=== PATIENT | female | born 1955 | race Caucasian/White ===

== ENCOUNTER 2016-07-11 04:20 | Inpatient (IN) | payer OTHER ==
--- NOTE | ~2016-07-11 | HP ---
Unit #: [id number] #: [id number] Patient: ADEOLA CEVALLOS [id number] [address] [place], [place] [address] [id number] I MR#: [id number] NAME: ADEOLA CEVALLOS ROOM: 571 Age: 60 Sex: F Admission Date: 07/11/2016 : 1955 Attending Physician: Michelle Hidalgo M.D. Primary Care Physician: Samir Tomlinson A.P.R.N. HISTORY AND PHYSICAL CHIEF COMPLAINT Bronchitis with COPD exacerbation, acute hypoxic respiratory failure. HISTORY This pleasant 60-year-old female with hypothyroidism, GERD, depression, was transferred from [facility] emergency department for respiratory failure. The patient states that she was well until about five days prior to admission when she developed a deep cough productive of light green sputum with increasing shortness of breath, wheezing, fever, sweats and chills. No previous history of lung disease, although she smokes between 1/2 to 3/4 packs per day of tobacco. When she presented to [facility] ER, her O2 sats were about 87%. She was treated with DuoNeb, steroids, IV magnesium, given a dose of Zithromax. Sent to this facility for further workup and treatment. Chest x-ray shows COPD but no active infiltrates. As an aside, the patient states that she fell and hit her head a week or so ago and has been experiencing increasing pain around the frontal region, particularly when coughing. PAST MEDICAL HISTORY 1. Hypothyroidism. 2. Irritable bowel syndrome. 3. Osteoporosis. 4. GERD. 5. History of kidney stones, status post ESWL. 6. Depression. 7. Back surgery with chronic back pain. 8. Total abdominal hysterectomy. 9. Removal of right knee ganglionic cyst. 10. Bilateral foot surgery. ALLERGIES None. HOME MEDICATIONS Trazodone 100 mg q.h.s.; Sears 10/325 q.4 hours as needed; Klonopin 1 mg daily; Cymbalta 60 mg daily; Janet D b.i.d.; Neurontin unknown dose; Synthroid 0.088 mg daily; omeprazole 40 mg daily; potassium and vitamins; Fosamax each week. FAMILY HISTORY Congestive heart failure. Unit #: [id number] #: [id number] Patient: ADEOLA CEVALLOS SOCIAL HISTORY The patient lives with her and extended family. Smokes between 1/2 to 3/4 packs per day. Has been smoking for 40 years but wants to stop smoking. Does not drink alcohol. REVIEW OF SYSTEMS Notable for headache, fall with headache, wheezing, shortness of breath, fever, sweats, chills, cough, tobacco use, thyroid disease, osteoporosis, GERD, kidney stones, depression, above mentioned surgeries. All other systems were reviewed and are otherwise negative. PHYSICAL EXAMINATION GENERAL: Pleasant 60-year-old female currently in no acute distress. VITAL SIGNS: Prior to transfer pulse 64, respirations 22, blood pressure 144/99, temperature 97.6, O2 saturation 87% on room air. HEENT: Eyes - PERRLA. Extraocular muscles are intact. Pharynx is benign. NECK: Supple without adenopathy or thyromegaly. CHEST: Reveals some rhonchi and a few crackles at the bases along with mild expiratory wheezes. CARDIAC: Normal S1 and S2 without murmur. ABDOMEN: Bowel sounds are present. Epigastric tenderness is noted, which the patient states has been present for the past year. No hepatosplenomegaly or masses. No rebound. No guarding. EXTREMITIES: Without edema. Pedal pulses are present. NEUROLOGIC: Patient is awake, alert, and oriented. Cranial nerves are intact. Equal strength throughout. DIAGNOSTIC STUDIES LABORATORY STUDIES: Hematocrit is 39.2, normal white count and platelet count. SMA 12 - potassium 3.3, normal magnesium. Troponin negative. IMAGING STUDIES: Chest x-ray shows COPD, no infiltrates. ASSESSMENT 1. Bronchitis with likely underlying COPD, which is exacerbated and associated hypoxic respiratory failure, which is acute. 2. Hypothyroidism. 3. Headache after fall with head injury. 4. Tobacco use. 5. GERD. 6. Depression. 7. Osteoporosis. 8. Chronic back pain. PLANS 1. Zithromax pending sputum cultures, steroids, mucolytics, and bronchodilators. 2. Smoking cessation counseling. 3. CT scan of the head. 4. SCDs for DVT prophylaxis. 5. Repeat labs this morning. Dictated by Michelle Hidalgo M.D. AML/ts Unit #: [id number] #: [id number] Patient: ADEOLA CEVALLOS TD: 07/11/2016 06:36 JOB #: [id number] HISTORY AND PHYSICAL Page 1 of 1 X Michelle Hidalgo MD X HISTORY AND PHYSICAL
--- NOTE | ~2016-07-11 | CT71 ---
[facility] A Service of [facility] & [facility] RADIOLOGY TEXT RESULTS PATIENT: ADEOLA CEVALLOS LOCATION: [facility] 571-01 : [birth year] UNIT #: [id number] AGE: [address]: Marilyn Strickland MD SEX: F ORDER DR: [id number] [facility] [address] [place], [place] [address] [id number] I MR#: [id number] #: [id number] NAME: ADEOLA CEVALLOS : 1955 SEX: F STUDY DATE/TIME: 07/11/2016 8:21 UNIT: [facility] ROOM: [facility] STUDY DESCRIPTION: CT Head Wo Contrast Attending Physician: Marilyn Strickland M.D. Ordering Physician: Michelle Hidalgo M.D. Primary Care Physician: Samir Tomlinson A.P.R.N. MEDICAL IMAGING REPORT This report is preliminary unless electronic signature is present EXAM Head CT without HISTORY Head injury, fell hit frontal area on side of door. frontal pain for a week. TECHNIQUE This CT exam was performed with one or more of the following radiation dose reduction techniques: automatic exposure control, adjustment of mA and/or kV according to patient size, and iterative reconstruction. FINDINGS Routine noncontrast head CT is reviewed. Mastoid air cells are clear. Visualized paranasal sinuses show minor mucosal thickening and no sinus air-fluid level. There is some vascular calcifications at the base of the brain. There is no evidence for acute intracranial hemorrhage or extraaxial fluid collection. The ventricles are normal in size and configuration and the sosa-white junction is well-maintained. No acute cortical infarct. No midline shift. Basilar cisterns patent. No intracranial mass effect. IMPRESSION Mild vascular calcifications otherwise negative noncontrast head CT. STAT * RESULT Dictated by... Rebeka Kuhn M.D. THIS IS AN ELECTRONICALLY VERIFIED REPORT [facility] A Service of [facility] & [facility] RADIOLOGY TEXT RESULTS PATIENT: ADEOLA CEVALLOS LOCATION: [facility] 571-01 : [birth year] UNIT #: [id number] AGE: [address]: Marilyn Strickland MD SEX: F ORDER DR: Rbeeka Kuhn M.D. at 07/11/2016 5:25 PM Claudia TD: 07/11/2016 09:11 JOB #: [id number] MEDICAL IMAGING REPORT Page 1 of 1 COPY
--- NOTE | ~2016-07-11 | EKG ---
PATIENT: ADEOLA CEVALLOS UNIT #: [id number] Ventricular Rate: 78 BPM Atrial Rate: 78 BPM P-R Interval: 168 ms QRS Duration: 84 ms Q-T Interval: 418 ms QTC Calculation(Bezet): 476 ms P Tony: 50 degrees Calculated R Tony: 60 degrees Calculated T Tony: 73 degrees Diagnosis Line: Normal sinus rhythm Diagnosis Line: Normal ECG Diagnosis Line: No previous ECGs available Diagnosis Line: Confirmed by PHILL REED MD ([id number]) on 07/12/2016 Diagnosis Line: 9:58:01 AM INTERPRETING MD: DEREK ELLISON
--- NOTE | ~2016-07-11 | DS ---
Unit #: [id number] #: [id number] Patient: ADEOLA CEVALLOS [id number] [address] [address] [id number] I MR#: [id number] NAME: ADEOLA CEVALLOS ROOM: 571 Age: 60 Sex: F Admission Date: 07/11/2016 : 1955 Discharge Date: Attending Physician: Marilyn Strickland M.D. Primary Care Physician: Samir Tomlinson A.P.R.N. DISCHARGE SUMMARY DISCHARGE DIAGNOSES 1. Acute hypoxic respiratory failure. 2. Chronic obstructive pulmonary disease with exacerbation with acute bronchitis. 3. Hypothyroidism. 4. Headache after fall with head injury. Computed tomography negative. 5. Smoking. 6. Gastroesophageal reflux disease. 7. Depression. 8. Osteoporosis. 9. Chronic back pain. 10. History of kidney stones. 11. Irritable bowel syndrome. 12. Mild metabolic acidosis. CONSULTATIONS None. PROCEDURES None. DIAGNOSTIC TESTING LAB DATA: WBC 4.2, hemoglobin 13.1, platelets 220. Sodium 139, potassium 3.8, creatinine 0.7. Liver enzymes normal. CARDIOVASCULAR: EKG normal. IMAGING: CT of the head without contrast shows mild vascular calcifications; otherwise, normal. ALLERGIES None. DISCHARGE MEDICATIONS 1. Neurontin 100 mg t.i.d. 2. Cymbalta 60 mg p.o. daily. 3. Trazodone 100 mg at bedtime. 4. Janet 1 tablet p.o. daily. 5. Nicotine 14 mg transdermal daily. 6. Klonopin 1 mg daily. 7. Alendronate 70 mg p.o. weekly. 8. Ibuprofen 600 q.8 p.r.n. pain. 9. Lortab 10 mg q.4 p.r.n. pain. 10. Omeprazole 40 p.o. daily. Unit #: [id number] #: [id number] Patient: ADEOLA CEVALLOS 11. Levothyroxine 88 mcg p.o. daily. 12. Zithromax 500 p.o. daily. 13. Symbicort 160 mcg 1 puff inhalation b.i.d. 14. Albuterol Mini-Neb q.6 p.r.n. shortness of breath. HOSPITALIZATION COURSE A 60 year old admitted because of shortness of breath. Acute hypoxic respiratory failure from COPD. She was on 2 liters. Currently off oxygen. COPD with exacerbation. Started on DuoNeb and IV Solu-Medrol. Currently breathing better. Continue with DuoNeb, albuterol, Symbicort at home. No prednisone needed. I gave prescription for Zithromax. Complaining of headache. CAT scan of the head is negative. She had trauma with head injury, but CAT scan did not show any bleed. DISCHARGE PLAN 1. Discharge home. 2. Follow with family physician in 1 week's time. Dictated by... Isaiah Montero/angel TD: 07/12/2016 15:57 JOB #: [id number] DISCHARGE SUMMARY Page 1 of 1 X Marilyn Strickland MD X DISCHARGE SUMMARY
[2016-07-11] MEDS ORDERED: NICOTINE PATCH1 EAC1 (04:52)
[2016-07-11 06:56] LABS: HEMATOCRIT 40.4 % (35.0-45.0); HEMOGLOBIN 13.1 gm/dL (12.0-16.0); MEAN CELL VOLUME 88.7 FL (83-96); MEAN CORPUSCULAR HEMOGLOBIN 28.9 PG (28-34); MEAN CORPUSCULAR HGB CONC 32.5 g/dL (30-36); MEAN PLATELET VOLUME 6.2 FL (6.5-11.5); RED BLOOD COUNT 4.55 X10e (3.90-5.30); RED CELL DISTRIBUTION WIDTH 14.4 % (11.0-15.5); WHITE BLOOD COUNT 4.2 X10e3 (4.0-10.5)
[2016-07-11 07:34] LABS: ALBUMIN SERUM 3.9 g/dL (3.5-5.0); BILIRUBIN,TOTAL 0.3 mg/dL (0.2-2.0); CALCIUM SERUM 8.7 mg/dL (8.4-10.2); CREATININE SERUM 0.7 mg/dL (0.6-1.4); GLOM FILT RATE Estimated 93.5 mL/min (>60); POTASSIUM 3.8 mmol/L (3.5-5.1); PROTEIN TOTAL SERUM 6.7 g/dL (6.0-8.3)
[2016-07-11] MEDS ORDERED: LORTAB 10-3251 EACH PO (10:04)
[2016-07-11] MEDS ORDERED: LEVOTHYROXINE88 MCG PO (10:05)
[2016-07-11] MEDS ORDERED: CYMBALTA PO (10:06)
[2016-07-11] MEDS ORDERED: ALENDRONATE SOD70 M1 PO (10:07)
[2016-07-11] MEDS ORDERED: OMEPRAZOLE40 M1 PO (10:07)
[2016-07-11] MEDS ORDERED: IBUPROFEN600 MG PO (10:07)
[2016-07-11] MEDS ORDERED: ALLEGRA ALLERGY60 MG PO (10:09)
[2016-07-11] MEDS ORDERED: NAPROXEN PO (10:10)
[2016-07-11] MEDS ORDERED: DESYREL100 MG PO (10:14)
[2016-07-11] MEDS ORDERED: KLONOPIN1 M1 PO (10:28)
[2016-07-11] MEDS ORDERED: NEURONTIN100 MG PO (10:34)
[2016-07-12] MEDS ORDERED: ZITHROMAX500 MG PO (15:50)
[2016-07-12] MEDS ORDERED: SYMBICORT INH (15:52)
[2016-07-12] MEDS ORDERED: ALBUTEROL2.5 MG/3 M INH (16:02)
== END 2016-07-12 18:43 | disposition home or self-care (01) | DRG 189 ==
LOC: C5C 04:20 → CEDOF 04:20 → C5C 05:04 → CEDOF 05:14 → C5C 07:20
PROVIDERS: Internal Medicine
DX: J96.01 Acute respiratory failure with hypoxia (principal); J44.0 Chronic obstructive pulmonary disease with (acute) lower respiratory infection; E87.2 Acidosis; S09.8XXA Other specified injuries of head, initial encounter; J44.1 Chronic obstructive pulmonary disease with (acute) exacerbation; J20.9 Acute bronchitis, unspecified; E03.9 Hypothyroidism, unspecified; R51 Headache; W19.XXXA Unspecified fall, initial encounter; F17.210 Nicotine dependence, cigarettes, uncomplicated; K21.9 Gastro-esophageal reflux disease without esophagitis; F32.9 Major depressive disorder, single episode, unspecified; M81.0 Age-related osteoporosis without current pathological fracture; M54.9 Dorsalgia, unspecified; G89.29 Other chronic pain; K58.9 Irritable bowel syndrome, unspecified; Z87.442 Personal history of urinary calculi; Z90.710 Acquired absence of both cervix and uterus
CPT/HCPCS: 70450; 80053; 85027; 93005; 94640; 94664; 94760; J0456; J2920